=== PATIENT | female | born 1950 | race Caucasian/White ===

== ENCOUNTER → 2018-01-28 10:04 | Outpatient (CLI) | payer MEDICARE, OTHER, SELFPAY ==
[2018-01-28 12:24] LABS: AST(SGOT) 31 U/L (15-37); Alanine Aminotransfer ALT/SGPT 37 U/L (13-56); Albumin, Serum 3.6 g/dL (3.2-5.0); Alkaline Phosphatase 100 U/L (45-117); Globulin 2.9 g/dL (2.2-4.2); Protein, Total 6.5 g/dL (6.4-8.2)
== END ==
PROVIDERS: Family Provider Internal Medicine; PCP Internal Medicine; Visit Provider Internal Medicine
DX: R94.5 Abnormal results of liver function studies (principal)
CPT/HCPCS: 36415; 80076

== ENCOUNTER → 2018-09-11 15:20 | Outpatient (CLI) | payer MEDICARE, OTHER, SELFPAY ==
--- NOTE | 2018-09-11 15:25 | BI_ITS ---
MAMMOGRAPHY - BILATERAL SCREENING 3-D TOMOSYNTHESIS REASON FOR EXAM: Female, 68 years old. Bilateral Screening 3-D tomosynthesis PERTINENT HISTORY: Family history maternal aunts x2 ages 50 and 60 with breast cancer. Status post left stereotactic biopsy in 2008.. TECHNIQUE: 2-D mammograms and 3-D Tomosynthesis of the breast (s) were performed. CAD was performed. COMPARISON: April 19, 2017. FINDINGS: The breast composition is composed of scattered fibroglandular density. Scattered benign calcifications are seen. No dense spiculated masses or suspicious microcalcifications are identified. No architectural distortion is identified. There is no skin thickening or retraction. There is stable appearance and positioning of biopsy clip marker in the approximate 12:00 position of the left breast. There are typically benign-appearing calcifications bilaterally. There has been no significant change since the prior study. BI/SCREENING MAMM (CAD), BILAT IMPRESSION: No mammographic signs of malignancy. Routine yearly mammograms recommended. ASSESSMENT CATEGORY: BIRADS Category 2: Benign. A letter regarding these results will be sent to the patient by the facility within 30 days. FOLLOW UP RECOMMENDATION: Yearly follow up mammogram recommended. (A) Approximately 10% of breast cancers are not detected by mammography. A normal mammogram should not delay biopsy of a clinically suspicious abnormality. Electronically Signed: Saad Abdi MD at 15:05 EDT , Service support ,
--- NOTE | 2018-09-11 15:25 | BD_ITS ---
STUDY: DUAL ENERGY X-RAY ABSORPTIOMETRY / DXA REASON FOR EXAM: Female, 68 years old. Osteoporosis screening. TECHNIQUE: Bone Mineral Density (BMD) measurements of lumbar spine and bilateral hips were obtained. COMPARISON: April 17, 2016. FINDINGS: Lumbar Spine (L1-L4): g/cm2 (1.185) / T-score (0.0) / Z-score (1.7) Left Femur Total: g/cm2 (0.977) / T-score (-0.2) / Z-score (1.2) Left Femoral Neck: g/cm2 (0.909) / T-score (-0.9) / Z-score (0.8) Right Femur Total: g/cm2 (0.953) / T-score (-0.4) / Z-score (1.0) Right Femoral Neck: g/cm2 (0.931) / T-score (-0.8) / Z-score (0.9) BD/Dexa Bone Density Study IMPRESSION: The patient is considered normal as outlined below according to World [place] Organization (WHO) criteria with a low fracture risk. Reference Information: The T-score is the number of standard deviations above or below the standard which is normal for young adults at their peak bone mineral density. The World Health Organization (WHO) interprets the T-scores as follows: Above -1 Normal bone density Between -1 and -2.5 Osteopenia Equal to / or below -2.5 Osteoporosis As a practical clinical guideline, osteopenia may be graded as follows: Mild -1 through -1.5 Moderate -1.6 through -2.0 Severe -2.1 through -2.4 The Z-score is the number of standard deviations above or below age-matched controls. A Z-score of less than -1.5 would be considered abnormal. References: 1. NIH Osteoporosis and Related Bone Diseases http://www.osteo.org 2. International Society for Clinical Densitometry http://www.iscd.org 3. National Osteoporosis Foundation http://www.nof.org Electronically Signed: Saad Abdi MD at 11:24 EDT , Service support ,
== END ==
PROVIDERS: Family Provider Internal Medicine; PCP Internal Medicine; Referring Provider Internal Medicine; Visit Provider Internal Medicine
DX: Z12.31 Encounter for screening mammogram for malignant neoplasm of breast (principal); Z78.0 Asymptomatic menopausal state
CPT/HCPCS: 77063; 77067; 77080

== ENCOUNTER 2018-11-02 10:54 | Observation (INO) | payer MEDICARE, OTHER, SELFPAY ==
[2018-11-02] VITALS (11 sets, daily range): BP systolic 82–152; BP diastolic 49–78; PULSE 48–75; RESP 10–18; TEMP 36.6–37.2; O2SAT 93–100; BMI 35.7; BMI 34.7
--- NOTE | 2018-11-02 10:55 | RAD_ITS ---
STUDY: X-RAY CHEST REASON FOR EXAM: Female, 68 years old. TECHNIQUE: 1 view COMPARISON: None. FINDINGS: There is poor inspiratory informed. The heart is at the upper limits of normal. The lung hansen are clear except for heavy markings in the medial aspect of the bases. No obvious pleural effusion or pneumothorax. Minimal calcification noted in the aortic knob. The trachea is in the midline. The visualized bones are intact. RAD/Chest 1 View (Portable) IMPRESSION: Heavy markings medial aspect of the bases the rest of the study is negative Electronically Signed: Vince Smith, at 11:23 EDT Tel , Service support ,
--- NOTE | 2018-11-02 11:00 | NURSING ---
NO OLD EKGS
[2018-11-02 11:11] LABS: Absolute Lymphocyte Count 3.47 X10^3/ul (0.83-4.51); Absolute Neutrophil Count 3.1 X10^3/uL (2.0-7.7); Basophil# 0.03 X10^3/uL; Basophil% 0.4 % (0-1); Eosinophil# 0.19 X10^3/uL; Eosinophils% 2.6 % (0-5); Hematocrit 37.2 % (37-47); Hemoglobin 12.1 g/dl (12.0-15.0); Lymphocyte # 3.47 X10^3/ul (4.0); Lymphocyte % 47.2 % (19-41); Mean Corp Hgb Conc 32.5 g/gl (32-36); Mean Corpuscular Hgb 31.6 pg (27.0-32.0); Mean Corpuscular Volume 97.1 fL (81-99); Mean Platelet Vol. 12.2 fl (6.2-12.0); Monocyte# 0.55 X10^3/uL; Monocyte% 7.5 % (0-10); Neutrophil # 3.11 X10^3/uL (2.7-7.7); Neutrophil % 42.3 % (47-70); Platelet Count 184 K/mm3 (150-450); RBC Distribution Width SD 45.7 fl (35.1-43.9); Red Blood Count 3.83 M/mm3 (4.2-5.4); White Blood Count 7.4 K/mm3 (4.4-11.0)
[2018-11-02 11:12] LABS: POSITIVE COUNT NO; POSITIVE DIFFERENTIAL NO; POSITIVE MORPHOLOGY NO
[2018-11-02] MEDS: Ondansetron 4 MG/2 ML Vial IV (11:19)
[2018-11-02 11:27] LABS: Anion Gap 8 (5-15); BUN 19 mg/dL (7-18); Calcium,Total 8.1 mg/dL (8.5-10.1); Chloride 109 mmol/L (98-107); Creatinine, Serum 1.19 mg/dL (0.55-1.02); EST Glomerular Filtration Rate 48 mL/min (>60); Est Glom Filt Rate - Afr Amer 58 mL/min (>60); Estimated Creatinine Clearance 37.99 ml/min; Glucose 139 mg/dL (74-106); Potassium 3.7 mmol/L (3.5-5.1); Sodium Level 140 mmol/L (136-145)
--- NOTE | 2018-11-02 11:53 | NURSING ---
DR HATCH FOR DR LAWSON
--- NOTE | 2018-11-02 11:59 | NURSING ---
PCU OBS BRADYCARDIA SYNCOPE
--- NOTE | 2018-11-02 12:00 | ED.VIS.GEN ---
History of Present Illness Chief Complaint: Hypotension Informant: Patient, Family Onset: Today Current Severity: Moderate Narrative: The patient presents from [facility] where she went feeling perfectly healthy, then during the service she suddenly felt very weak tired had what sounds like either syncope or near syncope a nurse went to her aid her heart rate was 30 paramedics were called they found a heart rate of 30 sinus apparently, they began pacing her and she was brought to the emergency department. On arrival she is in a sinus bradycardia 50 her blood pressure is 105 she is awake and alert complaining of fatigue. Per the patient and her she has not been ill in any way she has had no fever cough chest pain abdominal pain, she has hypertension is well controlled she is never had anything like this before she is neurologically at her baseline Past Medical History - Allergies and Home Meds Allergies/Adverse Reactions: Allergies No Known Allergies Allergy (Verified 11/02/18 11:12) Primary Care Physician: Jacquelyn Giron MD [Primary Care Provider] - Past Medical History: - Smoking Status: Never smoker Review of Systems ROS: - See above General: Denies: Chills, Fever, Sweats Eyes: Denies: Visual changes - bilaterally, Diplopia ENT: Denies: Rhinorrhea, Sore throat Cardiovascular: Denies: Chest pain, Palpitations Respiratory: Denies: Dyspnea, Cough, Dyspnea on exertion Gastrointestinal: Denies: Abdominal pain, Nausea, Vomiting, Diarrhea, Melena, Hematochezia Genitourinary: Denies: Dysuria, Hematuria, Frequency Musculoskeletal: Denies: Back pain, Extremity Pain Skin: Denies: Rash, Wounds Neurological: Denies: Headache, Weakness, Numbness Physical Exam Vital Signs/Narrative: Vital Signs Temp Pulse Resp BP Pulse Ox 11/02/18 11:20 93 11/02/18 11:08 53 L 17 101/49 L 97 11/02/18 10:56 97.8 F 48 L 14 82/65 L 97 Diagnostic/Tx/Re-eval - Medical Decision Making The patient's EKG shows sinus bradycardia chest x-ray labs are generally unremarkable she is remained stable in the department hemodynamically, given all the above I have called the hospital see her for the management admission and treatment of the unexpected bradycardia hypotension and syncope Admit stable Final impression Bradycardia, hypotension syncope etiology unclear ED Disposition - Plan for ED Patient: Referrals: Jacquelyn Giron MD [Primary Care Provider] -
--- NOTE | 2018-11-02 12:28 | PCM.HP.STD ---
Problem List (1) Hypotension Status: Acute (2) Symptomatic bradycardia Status: Acute (3) Near syncope Status: Acute (4) Hyperlipidemia Status: Chronic (5) Hypertension Status: Chronic History of Present Illness Date of Admission: 11/02/18 Chief Complaint: Near syncope, dizziness. The patient is a 68 year old F with past medical history as mentioned above presented to the emergency room because of near syncope. The patient was at the [employer] this morning, was sitting on a chair, felt dizzy, lightheaded, pale and clammy, started to throw up and she was about to pass out. A nurse who works at the hospital was at the scene and she stated that the patient was pale, clammy, sweaty and was about to pass out but she did not lose her consciousness completely. The nurse stated that her blood pressure was 70/49, heart rate was in the 50s and it came down to 30s. Patient denied any chest pain or shortness of breath. She denied palpitation. She denied abdominal pain, nausea or vomiting. She has history of hypertension and she has been on lisinopril and her blood pressure under good control. She had a history of significant hot flashes and she has been on clonidine and she took 2 tablets of 0.1 mg clonidine This morning. she had a history of hyperlipidemia and she has been on statins. In the emergency department, patient was bradycardic, heart it has been in the 50s, initial blood pressure was 82/65, improved later. She was afebrile, pulse ox 100% on 1 L of oxygen. Her routine blood work was unremarkable. EKG revealed sinus bradycardia, normal MT interval, normal QRS, normal QTC, no acute ischemic changes, cardiac arrhythmias or evidence of heart block. Chest x-ray showed mild cardiomegaly, prominent right pulmonary artery, no acute findings. She is being admitted for near syncopal episode due to bradycardia and hypotension which is probably secondary to clonidine. Past Medical History Past Medical History (Chronic Problems): Chronic Problems Hyperlipidemia (Chronic) Hypertension (Chronic) Allergies No Known Allergies Allergy (Verified 11/02/18 11:12) Home Medications: Ambulatory Orders Medication Instructions Recorded Aspirin [Aspir 81] 81 mg PO DAILY 11/02/18 Atorvastatin Calcium [Lipitor] 20 mg PO QHS 11/02/18 Cholecalciferol (VIT D3) [Vitamin 5,000 unit PO DAILY 11/02/18 D] Clonidine HCl [Catapres] 0.1 mg PO TID 11/02/18 Glucos Sul 2Kcl/MSM/Chond/C/Mn 1 ea PO DAILY 11/02/18 [Glucosamine Chondroitin Cap] Lisinopril [Zestril] 20 mg PO DAILY 11/02/18 Multivitamin [Daily Multiple 1 ea PO DAILY 11/02/18 Vitamin] [place]-3 Fatty Acids/Fish Oil 1 ea PO DAILY 11/02/18 [[place] 3 1,000 mg Softgel] Triamcinolone 0.5% Cream 1 applic TOPICAL BID 11/02/18 [Triamcinolone Acetonide] Ubidecarenone [Co Q-10] 200 mg PO DAILY 11/02/18 Surgical History: rotator cuff repair, - - Ankle surgery. 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 Denies: Anorexia, Chills, Fever Eyes: Denies: Blurred vision, Double vision, Drainage, Redness HEENT: Denies: Difficulty Hearing, Ear Pain, Eye Pain, Nasal Congestion, Sore Throat Cardiovascular: Reports: Light Headedness. Denies: Chest Pain, Chest Pressure, Chest Tightness, Heaviness, Palpitations, Paroxysmal Noc. Dyspnea Respiratory: Denies: Cough, Pleuritic Pain, Shortness of Breath, Sputum production, Wheezing Gastrointestinal: Reports: Nausea, Vomiting. Denies: Abdominal Pain, Constipation, Diarrhea Genitourinary: Denies: Dysuria, Frequency, Hematuria Musculoskeletal: Denies: Arm Pain, Back Pain, Foot Pain Skin: Denies: Dryness, Rash Neurological: Denies: Balance problems, Double vision, Change in Speech, Slurred speech, Confusion, Headaches, Incoordination, Numbness Psychiatric: Denies: Anxiety, Depression Endocrine: Denies: Change in Body Habitus, Polydipsia, Polyuria VTE Information - Inpt Only VTE Present on Admission: No VTE Mechan Device Prophylaxis: None VTE Pharm Prophylaxis ordered?: Yes Patient Problems: Active and Suspected Problems Hypotension (Acute) Symptomatic bradycardia (Acute) Near syncope (Acute) - Physical Exam General: Alert, Oriented x3, Cooperative, No apparent distress HEENT: Atraumatic, PERRLA, EOMI, Normocephalic Oral: Moist Mucosa, No Gingival or Mucosal Lesions/ Ulcerations Neck: Supple, No JVD, Negative Carotid Bruits, Trachea Midline, Thyroid Normal Size and Texture Lungs: Clear to auscultation, Normal air movement, No rhonchi, No wheeze, No rales, Diminished Cardiovascular: Regular rate, Regular Rhythm, Normal S1, Normal S2, No murmurs, Bradycardic Abdomen: Bowel Sounds Present, Soft, Non Tender, Non-Distended, No Hepato-splenomegaly Extremities: No clubbing, No cyanosis, No edema Skin: No rashes, No breakdown Lymphatic: No Cervical, Supraclavicular, or Inguinal Adenopathy Neurological: Cranial nerves II-XII grossly intact, Motor Exam 5/5 strength throughout Psych/Mental Status: Normal Affect, Appropriate, Alert and oriented to time, place, person, mood and affect Vital Signs Temp Pulse Resp BP Pulse Ox 97.8 F 57 L 10 L 119/61 99 11/02/18 10:56 11/02/18 12:19 11/02/18 12:19 11/02/18 12:19 11/02/18 12:19 Oxygen Flow Rate (L/min) 1 Oxygen Delivery Method Nasal Cannula Weight: 208 lb 1.862 oz Body Mass Index (BMI) 35.7 Laboratory Tests Past 24 Hrs 11/02/18 11/02/18 11:02 11:02 WBC 7.4 RBC 3.83 L Hgb 12.1 Hct 37.2 MCV 97.1 MCH 31.6 MCHC 32.5 RDW 13.0 RDW Differential 45.7 H Plt Count 184 MPV 12.2 H Immature Gran % (Auto) 0.000 Neut % (Auto) 42.3 L Lymph % (Auto) 47.2 H King % (Auto) 7.5 Eos % (Auto) 2.6 Baso % (Auto) 0.4 Absolute Neuts (auto) 3.1 Absolute Lymphs (auto) 3.47 Total Counted Not Reportable Sodium 140 Potassium 3.7 Chloride 109 H Carbon Dioxide 23.0 Anion Gap 8 BUN 19 H Creatinine 1.19 H Estim Creat Clear Calc 37.99 Est GFR (MDRD) Af Amer 58 L Est GFR (MDRD) Non-Af 48 L BUN/Creatinine Ratio 16.0 Glucose 139 H Calcium 8.1 L Troponin I < 0.015 Clinical Impression(s) from Imaging Studies Chest X-Ray 11/02/18 10:55 IMPRESSION: Heavy markings medial aspect of the bases the rest of the study is negative Electronically Signed: Vince Smith, at 11:23 EDT Tel , Service support , Assessment/Plan All Active Problems Hypotension (Acute) Symptomatic bradycardia (Acute) Near syncope (Acute) This is a 68 years old female patient presented to the medicine because of near syncopal episode, bradycardia and hypotension she is being admitted for evaluation. #1 near syncopal episode/symptomatic bradycardia/hypotension: According to the patient's history as well as report from the nurse who was at the [employer], her symptoms are likely due to vasovagal episode secondary to bradycardia and hypotension which caused by clonidine. EKG revealed sinus bradycardia, normal MT interval, normal QRS, normal QTC, no evidence of acute ischemic changes, cardiac arrhythmias or heart block. Patient took 2 tablets of clonidine 0.1 mg this morning. She takes clonidine for hot flashes. Her troponin is negative x1. Plan: Admit to PCU for observation, cardiac monitoring, serial cardiac enzymes, repeat EKG tomorrow morning, check serum magnesium and TSH, discontinue clonidine, IV fluids, Tylenol PRN, orthostatic vitals tomorrow morning, 2D echocardiogram, PT OT evaluation and treatment. If by tomorrow morning patient remained bradycardic, we may need to look for other etiology for bradycardia. #2 hypertension: Patient has been on lisinopril blood pressure well controlled. At this time, blood pressure is borderline but improved. Plan to hold lisinopril. Patient was actually on clonidine for hot flashes. #3 hyperlipidemia: Continue statins. #4 DVT prophylaxis: Subcu Lovenox. This note was generated with [employer] dictation software. It may contain incorrect words, spelling, and punctuation that were not noted in checking the note before signing. Code Visit OBSV E&M: 67174 Initial observation care L3
--- NOTE | 2018-11-02 12:57 | ECHOD_ITS ---
Reason For Study: Near syncope Procedure This was a 2D Doppler, Color Flow transthoracic echocardiogram. Exam performed portable in patient room. Left Ventricle Normal LV size. Left ventricular systolic function is normal. The estimated ejection fraction is 65 %. Stage 2 diastolic dysfunction. No regional wall motion abnormalities noted. Right Ventricle Normal RV size. Normal systolic function. Atria Normal left atrium. Normal right atrium. Mitral Valve Normal mitral valve. Mild (1+) eccentric mitral valve insufficiency. Tricuspid Valve Normal tricuspid valve. Aortic Valve Normal aortic valve. Trisinus/trileaflet aortic valve. Pulmonic Valve Normal pulmonic valve. Great Vessels Normal aortic root. The pulmonary artery is normal size. Normal inferior vena cava. Pericardium/Pleural No pericardial effusion. MMode/2D Measurements & Calculations LVIDd: 4.4 cm IVSd: 1.2 cm Ao root diam: 3.0 cm LVIDs: 2.7 cm LVPWd: 1.2 cm RVDd: 3.4 cm FS: 38.4 % LAV(MOD-bp): 59.6 ml EDV(MOD-sp4): 84.6 ml EDV(MOD-sp2): 50.8 ml LAV(MOD-bp) Indexed: 29.9 ml/m2 ESV(MOD-sp4): 31.1 ml EF(MOD-sp2): 60.1 % LAV(MOD-sp2): 52.7 ml EF(MOD-sp4): 63.2 % LAV(MOD-sp4): 66.0 ml SV(MOD-sp4): 53.4 ml SV(MOD-sp2): 30.5 ml LA A4 area: 21.1 cm2 LA dimension(2D): 4.0 cm RA A4 area: 20.6 cm2 Doppler Measurements & Calculations MV E max javon: 102.0 cm/sec Lat Peak E' Javon: 8.7 cm/sec Med Peak E' Javon: 7.8 cm/sec MV A max javon: 105.8 cm/sec E/E' lat: 11.7 E/E' med: 13.1 MV E/A: 0.96 Ao V2 max: 163.9 cm/sec LV V1 max: 126.8 cm/sec PA V2 max: 84.4 cm/sec Ao max P.7 mmHg LV V1 max P.4 mmHg Interpretation Summary Normal LV size. Left ventricular systolic function is normal. The estimated ejection fraction is 65 %. Stage 2 diastolic dysfunction. Mild (1+) eccentric mitral valve insufficiency. Ordering Physician: Elvira Rubalcava Referring Physician: Jacquelyn Giron M.D. Performed By: Brooklynn Torres RDCS
[2018-11-02 13:48] LABS: Magnesium 1.8 mg/dL (1.6-2.6); Thyroid Stim Hormone (TSH) 3.51 uIU/mL (0.358-3.74)
[2018-11-02] MEDS: Lactated Ringers 1,000 ML 100 ML IV ×2 (13:48→22:05)
[2018-11-02] MEDS: Atorvastatin Calcium 20 MG Tablet PO (22:05)
[2018-11-03 02:35] VITALS: BP 144/71; PULSE 64; RESP 18; TEMP 36.6; O2SAT 97
[2018-11-03 03:00] VITALS: BP 144/71; BP 169/95; BP 170/82; PULSE 64; PULSE 68; PULSE 74
[2018-11-03 03:01] VITALS: PULSE 82
--- NOTE | 2018-11-03 05:55 | EKG12_ITS ---
Test Reason : AM EKG Blood Pressure : / mmHG Vent. Rate : 067 BPM Atrial Rate : 067 BPM P-R Int : 168 ms QRS Dur : 094 ms QT Int : 406 ms P-R-T Axes : 056 030 032 degrees QTc Int : 429 ms Normal sinus rhythm Normal ECG When compared with ECG of 02-NOV-2018 10:56, MANUAL COMPARISON REQUIRED, DATA IS UNCONFIRMED Confirmed by MARY OLIVEROS, TAWNY ([id number]), newspaper or periodical editor WALESKA CLAIRE ([id number]) on 11/04/2018 7:55:14 AM Referred By: Elvira Rubalcava Confirmed By:TAWNY HERNANDEZ MD
[2018-11-03 05:58] LABS: Absolute Lymphocyte Count 1.92 X10^3/ul (0.83-4.51); Absolute Neutrophil Count 2.4 X10^3/uL (2.0-7.7); Basophil# 0.01 X10^3/uL; Basophil% 0.2 % (0-1); Eosinophil# 0.12 X10^3/uL; Eosinophils% 2.5 % (0-5); Hematocrit 37.6 % (37-47); Hemoglobin 12.4 g/dl (12.0-15.0); Lymphocyte # 1.92 X10^3/ul (4.0); Lymphocyte % 40.1 % (19-41); Mean Corpuscular Hgb 31.6 pg (27.0-32.0); Mean Corpuscular Volume 95.7 fL (81-99); Mean Platelet Vol. 12.7 fl (6.2-12.0); Monocyte# 0.38 X10^3/uL; Monocyte% 7.9 % (0-10); Neutrophil # 2.35 X10^3/uL (2.7-7.7); Neutrophil % 49.1 % (47-70); Platelet Count 174 K/mm3 (150-450); RBC Distribution Width CV 12.8 % (11.6-14.6); RBC Distribution Width SD 43.2 fl (35.1-43.9); Red Blood Count 3.93 M/mm3 (4.2-5.4); White Blood Count 4.8 K/mm3 (4.4-11.0)
[2018-11-03 06:03] LABS: Anion Gap 6 (5-15); BUN 15 mg/dL (7-18); BUN/Creat Ratio 19.8 RATIO (10-20); Calcium,Total 8.5 mg/dL (8.5-10.1); Chloride 111 mmol/L (98-107); Creatinine, Serum 0.76 mg/dL (0.55-1.02); EST Glomerular Filtration Rate 80 mL/min (>60); Est Glom Filt Rate - Afr Amer 97 mL/min (>60); Glucose 97 mg/dL (74-106); Potassium 3.8 mmol/L (3.5-5.1); Sodium Level 146 mmol/L (136-145)
[2018-11-03 06:16] LABS: POSITIVE COUNT NO; POSITIVE DIFFERENTIAL NO; POSITIVE MORPHOLOGY NO
[2018-11-03 07:00] VITALS: PULSE 65
[2018-11-03 07:42] VITALS: O2SAT 92
[2018-11-03 08:28] VITALS: BP 152/63; PULSE 61; RESP 16; TEMP 37.1; O2SAT 97
[2018-11-03] MEDS: Lactated Ringers 1,000 ML 100 ML IV (08:32)
[2018-11-03] MEDS: Aspirin E.C. 81 MG Tablet PO (08:33)
--- NOTE | 2018-11-03 12:54 | PCM.DC ---
- Discharge Diagnoses Current Active Problems: Current Active and Chronic Problems Hypotension (Acute) Symptomatic bradycardia (Acute) Near syncope (Acute) Hyperlipidemia (Chronic) Hypertension (Chronic) Reason(s) for Visit for Discharge Instructions: Near syncope, bradycardia You will use the following diet at home:: Cardiac Your food should be the consistency of: Regular Your liquids should be the consistency of: Regular/Thin Discharge Activity: Return to Normal Activity Additional Instructions: Take note of changes to yiur medications. You have been taken off Clonidine. As discussed, you should take your blood pressure every morning and keep a log of it. You should follow-up with DR. Giron as scheduled with the log of your blood pressures. If your blood pressure is persistently more than 170s, you have to see a provider as soon as possible. You will be discharged with an event monitor and follow-up with cardiology in 2-4 weeks. Allergies/Adverse Reactions: Allergies No Known Allergies Allergy (Verified 11/02/18 11:12) Medications to take at Discharge Aspirin [Aspir 81] 81 mg PO DAILY 11/02/18 Atorvastatin Calcium [Lipitor] 20 mg PO QHS 11/02/18 Cholecalciferol (VIT D3) [Vitamin D3] 5,000 unit PO DAILY 11/02/18 Glucos Sul 2Kcl/MSM/Chond/C/Mn [Glucosamine Chondroitin Cap] 1 ea PO DAILY 11/02/18 Lisinopril [Zestril] 20 mg PO DAILY 11/02/18 Multivitamin [Daily Multiple Vitamin] 1 ea PO DAILY 11/02/18 [place]-3 Fatty Acids/Fish Oil [[place] 3 1,000 mg Softgel] 1 ea PO DAILY 11/02/18 Ubidecarenone [Co Q-10] 200 mg PO DAILY 11/02/18 Orders to be completed after discharge: 30-Day Event Recorder [[facility]] Location: None Selected Primary Care Physician: Jacquelyn Giron MD [Primary Care Provider] - Please follow up with your Primary Care Physician in: as scheduled Test Results: Test results from this visit will be discussed in further detail at your follow-up appointment, if applicable. Please Follow Up With: Douglas Matamoros MD When: within 2-4 weeks Proposed Discharge Date: 11/03/18
--- NOTE | 2018-11-03 12:59 | DS.PCM_ITS ---
Discharge Date and Diagnosis Date of Admission: 11/02/18 Date of Discharge: 11/03/18 - Primary Discharge Diagnosis Active and Suspected Problems Hypotension (Acute) Symptomatic bradycardia (Acute) Near syncope (Acute) Medication side-effect - Secondary Discharge Diagnosis Chronic Problems Hyperlipidemia (Chronic) Hypertension (Chronic) Hospital Course and Treatment Imaging Results: Clinical Impression(s) from Imaging Studies Chest X-Ray 11/02/18 10:55 IMPRESSION: Heavy markings medial aspect of the bases the rest of the study is negative Electronically Signed: Vince Smith, at 11:23 EDT Tel , Service support , None Operations: None Procedures: None Summary of Care Provided: The patient is a 68 year old F with past medical history of hypertension, hyperlipidemia who was brought to the emergency room with near syncope. Patient is on clonidine for hot flashes which she takes 0.2 mg twice daily in the summer and 0.1 mg twice daily in the winter. She was in [place] when she felt dizzy, lightheaded, pale and clammy and started to throw up with a sensation of passing out. Patient was found to have a blood pressure of 70/49 and a heart rate in the 30s to 50s. The EMS was called. The cardio-paced the patient on route. In the ED, she was still bradycardic and slightly hypotensive. EKG shows sinus bradycardia. Her clonidine was held. Heart rate and blood pressure improved overnight. 2D echo shows no acute abnormality. Patient was discharged with an event monitor to follow-up with cardiology, in 2 to 4 weeks. Her primary care doctor was called and updated. She was asked to keep a log of her blood pressure letter to her primary care doctor knows if her blood pressure continues to be elevated. Subjective: On the day of discharge, patient coming. She feels improved. Denies any chest pain or dizziness or palpitation. - Physical Exam General: Alert, Oriented x3, Cooperative, No apparent distress HEENT: Atraumatic, PERRLA, EOMI, Normocephalic Oral: Moist Mucosa Neck: Supple Lungs: Clear to auscultation, Normal air movement Cardiovascular: Regular rate, Regular Rhythm, Normal S1, Normal S2, No murmurs Abdomen: Bowel Sounds Present, Soft, Non Tender, Non-Distended, No Hepato- splenomegaly Extremities: No edema Skin: No rashes, No breakdown Musculoskeletal: No Tenderness to Palpation of Joints or Extremities Lymphatic: No Cervical, Supraclavicular, or Inguinal Adenopathy Neurological: Cranial nerves II-XII grossly intact, Neuro grossly intact Psych/Mental Status: Normal Affect, Appropriate Vital Signs Temp Pulse Resp BP Pulse Ox 98.7 F 61 16 152/63 H 97 11/03/18 08:28 11/03/18 08:28 11/03/18 08:28 11/03/18 08:28 11/03/18 08:28 Oxygen Flow Rate (L/min) 1 Oxygen Delivery Method Room Air Weight: 91.7 kg Body Mass Index (BMI) 34.7 Orthostatic Vital Signs Start: 11/02/18 14:36 Freq: q24h Status: Active Protocol: Activity Type Activity Date Activity User E-Sign Co-Sign Detail Recorded Client Recorded Date Recorded By Document 11/03/18 03:00 [facility] [id number] 11/03/18 03:34 [facility] 11/03/18 03:00 Orthostatic Vitals Standing -Blood Pressure (90/60-120/80) 169/95 H -Extremity Use Right Arm -Pulse Rate (60-100) 74 Sitting -Blood Pressure (90/60-120/80) 170/82 H -Extremity Use Right Arm -Pulse Rate (60-100) 68 Lying -Blood Pressure (90/60-120/80) 144/71 H -Extremity Use Right Arm -Pulse Rate (60-100) 64 Intake and Output for Last 24 Hours 11/01/18 11/02/18 11/03/18 23:59 23:59 23:59 Intake Total 1833 / 1833 571 / 571 Balance 1833 / 1833 571 / 571 Laboratory Tests Past 24 Hrs 11/02/18 11/02/18 11/02/18 11:02 14:15 17:10 WBC RBC Hgb Hct MCV MCH MCHC RDW RDW Differential Plt Count MPV Immature Gran % (Auto) Neut % (Auto) Lymph % (Auto) [place] % (Auto) Eos % (Auto) Baso % (Auto) Absolute Neuts (auto) Absolute Lymphs (auto) Total Counted Sodium Potassium Chloride Carbon Dioxide Anion Gap BUN Creatinine Estim Creat Clear Calc Est GFR (MDRD) Af Amer Est GFR (MDRD) Non-Af BUN/Creatinine Ratio Glucose Calcium Magnesium 1.8 Troponin I < 0.015 < 0.015 TSH 3.51 11/03/18 11/03/18 05:25 05:25 WBC 4.8 RBC 3.93 L Hgb 12.4 Hct 37.6 MCV 95.7 MCH 31.6 MCHC 33.0 RDW 12.8 RDW Differential 43.2 Plt Count 174 MPV 12.7 H Immature Gran % (Auto) 0.200 Neut % (Auto) 49.1 Lymph % (Auto) 40.1 [place] % (Auto) 7.9 Eos % (Auto) 2.5 Baso % (Auto) 0.2 Absolute Neuts (auto) 2.4 Absolute Lymphs (auto) 1.92 Total Counted Not Reportable Sodium 146 H Potassium 3.8 Chloride 111 H Carbon Dioxide 29.0 Anion Gap 6 BUN 15 Creatinine 0.76 Estim Creat Clear Calc 45.20 Est GFR (MDRD) Af Amer 97 Est GFR (MDRD) Non-Af 80 BUN/Creatinine Ratio 19.8 Glucose 97 Calcium 8.5 Magnesium Troponin I TSH Discharge Diet: Low fat/ Low Cholesterol, 2000 mg Sodium Diet Discharge Activity: Return to Normal Activity Home Medications: Medications to take at Discharge Aspirin [Aspir 81] 81 mg PO DAILY 11/02/18 Atorvastatin Calcium [Lipitor] 20 mg PO QHS 11/02/18 Cholecalciferol (VIT D3) [Vitamin D3] 5,000 unit PO DAILY 11/02/18 Glucos Sul 2Kcl/MSM/Chond/C/Mn [Glucosamine Chondroitin Cap] 1 ea PO DAILY 11/02/18 Lisinopril [Zestril] 20 mg PO DAILY 11/02/18 Multivitamin [Daily Multiple Vitamin] 1 ea PO DAILY 11/02/18 Winside-3 Fatty Acids/Fish Oil [Winside 3 1,000 mg Softgel] 1 ea PO DAILY 11/02/18 Ubidecarenone [Co Q-10] 200 mg PO DAILY 11/02/18 Other Amb Orders: 30-Day Event Recorder [[facility]] Location: None Selected Primary Care Physician: Jacquelyn Giron MD [Primary Care Provider] - Please follow up with your Primary Care Physician in: as scheduled Please Follow Up With: Douglas Matamoros MD When: within 2-4 weeks Disposition: Home Minutes spent on discharge:: 45 Patient Condition:: Stable Medical Necessity - Tobacco Use Smoking Status: Never smoker Tobacco Use: Non-smoker Meaningful Use Info Meaningful Use Diagnoses (Choose all that apply): None applicable Code Visit Inpatient E&M: 02488 Subs Hosp L2
== END 2018-11-03 12:52 | disposition home or self-care (01) ==
LOC: ED 12:06 → PCU 12:40
PROVIDERS: Admitting Provider Hospitalist; Emergency Provider Emergency Medicine; Family Provider Internal Medicine; PCP Internal Medicine; Referring Provider Hospitalist; Visit Provider Internal Medicine
DX: I95.9 Hypotension, unspecified (principal); R00.1 Bradycardia, unspecified; R55 Syncope and collapse; I10 Essential (primary) hypertension; E78.5 Hyperlipidemia, unspecified; Z79.899 Other long term (current) drug therapy; Z79.82 Long term (current) use of aspirin; N95.1 Menopausal and female climacteric states
CPT/HCPCS: 36415; 71045; 80048; 83735; 84443; 84484; 85025; 93005; 93306; 96361; 96374; 99218; 99285; J7030; J7120; A4216; G0378; J2405

== ENCOUNTER → 2019-03-04 08:25 | Outpatient (CLI) | payer MEDICARE, OTHER, SELFPAY ==
[2018-11-14 13:36] VITALS: BMI 34.4
--- NOTE | 2019-03-04 08:28 | US_ITS ---
STUDY: ABDOMINAL ULTRASOUND - RIGHT UPPER QUADRANT REASON FOR VISIT: Female, 68 years old elevated liver function tests. TECHNIQUE: Ultrasound evaluation of the right upper quadrant was performed with real-time and static jamison-scale imaging. TECHNICAL QUALITY: Limited. Examination limited by bowel gas. COMPARISON: None. FINDINGS: Liver: The liver measures 15.6 cm. There is normal echogenicity of the liver. The bile ducts are within normal limits. There is hepatic color flow. The direction of portal flow is hepatopetal. There is no demonstrated mass lesion. Gallbladder: Normal distended gallbladder. The gallbladder wall measures 2.6 mm. There is a negative sonographic Rosario's sign. There is no pericholecystic fluid. There are no gallstones. Common Bile Duct (C.B.D.): The common bile duct measures 5.3 mm. Pancreas: Normal size of the head, body and tail of the pancreas. There is normal echogenicity of the pancreas. There is no demonstrated pancreatic mass or cyst. Right Kidney: Normal size of the right kidney. The right kidney measures 10.5 x 5.2 x 5 point cm. Normal renal cortex. The right cortex measures 1.7 cm. There is no demonstrated renal mass or cyst. There is no right hydronephrosis. US/Liver IMPRESSION: Normal right upper quadrant ultrasound examination. Electronically Signed: Silvana Torrez MD at 3:21 EDT , Service support ,
== END ==
PROVIDERS: Family Provider Internal Medicine; PCP Internal Medicine; Referring Provider Internal Medicine; Visit Provider Internal Medicine
DX: R94.5 Abnormal results of liver function studies (principal)
CPT/HCPCS: 76705

== ENCOUNTER → 2019-04-30 15:42 | Outpatient (CLI) | payer MEDICARE, OTHER, SELFPAY ==
[2018-11-14 13:36] VITALS: BMI 34.4
--- NOTE | 2019-04-30 15:44 | RAD_ITS ---
STUDY: X-RAY - LUMBAR SPINE REASON FOR EXAM: Female, 68 years old. Chronic back pain TECHNIQUE: 3 view(s) of the lumbar spine were obtained. COMPARISON: None FINDINGS: Normal lumbar lordosis. There is a minimal lumbar dextroscoliosis. There is a normal alignment of the vertebrae. There is diffuse demineralization with multi-level endplate spondylosis. There is severe narrowing of the L4-5 disc space. The soft tissue structures are unremarkable. RAD/Lumbar Spine 2 or 3 Views IMPRESSION: Mild mid lumbar dextroscoliosis. Severe narrowing of the L4-5 disc space. Generalized osteopenia. Mild diffuse endplate spondylosis. Electronically Signed: Matthew Armstrong MD at 21:43 EST , Service support ,
== END ==
PROVIDERS: Family Provider Internal Medicine; PCP Internal Medicine; Referring Provider Internal Medicine; Visit Provider Internal Medicine
DX: M54.5 Low back pain (principal)
CPT/HCPCS: 72100

== ENCOUNTER 2019-07-17 09:30 | Outpatient (RCR) | payer MEDICARE, OTHER, SELFPAY ==
[2018-11-14 13:36] VITALS: BMI 34.4
--- NOTE | 2019-06-24 12:40 | HP.PTEVAL ---
Patient's Visit Information MARINO WASHINGTON is a 69 year old F referred to Physical Therapy by Jacquelyn Giron MD with a diagnosis of LBP ,LEFT HIP PAIN. Date of Evaluation: 06/24/19 Physical Therapist: Marquis Hannah, PT, Cert MDT, OCS - Visit Plan Frequency: 5x /Week Duration: 4 Weeks Plan: PT INTERVETIONS US/ESTIM /CP BILTERAL HIP GREATER TROCHNATER,STICK/STM IT BAND,. STRENGTHENING AND CORE,FLEXABLITY HIP - Subjective Findings: This 69 y/o female presents to physical therapy with low back and left hip pain. Patient has low back pain years ,and hip pain left in lateral hip. Seen DR pricila medjoe and stretches. Patient pain affects worse elevation from chair ,walking ,night,bending and lifting. Allevating factors sitting/rest. Denies parathesia/tingling. Night is worse 8-01/20 . Symmtrical lumbar. Coughing /sneezing -. Bowel/bladder -. Pateint symptoms affects ability houseworks and function. Pateint symptoms affects QOL. VOCATION: retired. SOCAIL: - Pain Right Hip Pain Intensity (Out of 10): 1 Pain Intensity Range: 10 Right Back Pain Intensity (Out of 10): 1 Pain Intensity Range: 10 - Objective POSTURE: mild foward posture. NEURO: denies parathesia/tingling,reflexes L3-4,L4-5,L4-5 1/3. PALAPTION: bilateral tender I-T band -very tender ,greater tronhanter. GAIT: normal waldo. PROM: hip felxion 110 degrees,IR 50 degrees ,ER 65 degrees. LUMBAR ROM: flexion WFL,extension min loss,side glides min. MMT: quads/hams 4/5,hip flexion 4-/5,abd 4-/5,ankle 4/5. FLEXABLITY: hams min tight,piriformis mild tight - Special Tests L/S Slump test left side: Negative L/S Slump test right side: Negative L/S Left Straight Leg Raise: Negative L/S Right Straight Leg Raise: Negative Lumbar Standing: Flexion - Mechanical Response: No effect Lumbar Standing: Flexion - Symptoms During Testing: No effect Lumbar Standing: Flexion - Symptoms After Testing: No effect Lumbar Standing: Extension - Mechanical Response: No effect Lumbar Standing: Extension - Symptoms During Testing: No effect Lumbar Standing: Extension - Symptoms After Testing: No effect Lumbar Standing: Right Side Glides - Mechanical Response: No effect Lumbar Standing: Right Side Point Clear - Symptoms During Testing: No effect Lumbar Standing: Right Side Point Clear - Symptoms After Testing: No effect Lumbar Standing: Left Side Point Clear - Mechanical Response: No effect Lumbar Standing: Left Side Point Clear - Symptoms During Testing: No effect Lumbar Standing: Left Side Point Clear - Symptoms After Testing: Better R Hip Scour: Negative R Hip MEGAN - Intraarticular Pathology: Negative R Hip Enedelia - IT Band: Positive L Hip Scour: Negative L Hip MEGAN - Intraarticular Pathology: Negative L Hip Trendelenberg - Glut Medius: Negative L Hip Enedelia - IT Band: Positive - Goals Goal 1:: Independant with HEP Goal Time Frame: 4-6 Weeks Goal 2:: Decrease bilateral hip pain I- band by 50% or > to improve function and QOL. Goal Time Frame: 4-6 Weeks Goal 3:: Patient to decrease lateral greater tronchanter pain and I T band with less sympptoms duing palaption enbale patient to sleep on either side by 50% Goal Time Frame: 4-6 Weeks Goal 4:: Patient be able to perform bilateral hip pain with extended walking in community Goal Time Frame: 4-6 Weeks Goal 5:: Patient improve LFES score by 10 points to improve QOL. Goal Time Frame: 4-6 Weeks - Rehabilitation Potential Physical Therapy Diagnosis: Patient has right hip pain some worse than left with tender greater tronchanter,IT BAND with mild bcak pain,IT band affects sleeping at night on sides,getting up from chair ,extended walking,along with some weakness thus benifit from skilled PT . Rehabilitation Potential: Good - Anticipated Interventions Patient/Client Instruction: Educate patient on: Condition, Plan of Care For the Purpose of:: To decrease pain, To increase ROM, To improve muscle performance and motor function, To increase tolerance to activity/condition/position, To improve performance and independence with ADL's, To improve ability of physical actions for home/community/work/leisure, To improve health of tissue, To decrease soft tissue restriction, To increase flexibility/ROM, To improve ability to perform tasks related to life management Therapeutic Exercise to Include: Strength training, Postural training, Flexibilty training, Active ROM, Dynamic Lumbar Stabilization Comment: hips For the Purpose of:: To decrease pain, To increase ROM, To improve muscle performance and motor function, To improve ability to perform ADL's, To increase tolerance to activity/condition/position, To improve ability of physical actions for home/community/work/leisure, To improve health of tissue, To decrease soft tissue restriction, To increase flexibility/ROM, To improve ability to perform tasks related to life management Manual Therapy Techniques to Include: Soft tissue mobilization Comment: I-T BAND For the Purpose of:: To decrease pain, To increase ROM, To improve nutrient delivery to tissue, To increase oxygenation perfusion, To improve health of tissue, To decrease soft tissue restriction, To increase flexibility/ROM TENS: Yes IF ES: Yes Cryotherapy (ice pack, ice massage): Yes Ultrasound (thermal/non thermal): Yes For the Purpose of:: To decrease pain, To increase ROM, To improve nutrient delivery to tissue, To increase oxygenation perfusion, To improve health of tissue, To decrease soft tissue restriction Thank you for the opportunity to evaluate your patient. For Medicare and Medicare HMO plans, please review the plan of care and approve it. It will need to be FAXED BACK to us at [phone] for Medicare purposes. For Medicare only, by signing this I certify the plan of care. Please let me know if there are questions or concerns regarding this plan of care. Physician Signature: Date:
--- NOTE | 2019-06-25 10:09 | HP.PTEVAL_ITS ---
Patient's Visit Information MARINO WASHINGTON is a 69 year old F referred to Physical Therapy by Jacquelyn Giron MD with a diagnosis of LBP ,LEFT HIP PAIN. Date of Evaluation: 06/24/19 Physical Therapist: Marquis Hannah, PT, Cert MDT, OCS - Visit Plan Frequency: 5x /Week Duration: 4 Weeks Plan: PT INTERVETIONS US/ESTIM /CP BILTERAL HIP GREATER TROCHNATER,STICK/STM IT BAND,. STRENGTHENING AND CORE,FLEXABLITY HIP - Subjective Findings: This 69 y/o female presents to physical therapy with low back and left hip pain. Patient has low back pain years ,and hip pain left in lateral hip. Seen DR mcnulty medjoe and stretches. Patient pain affects worse elevation from chair ,walking ,night,bending and lifting. Allevating factors sitting/rest. Denies parathesia/tingling. Night is worse 8-10 . Symmtrical lumbar. Coughing / sneezing -. Bowel/bladder -. Pateint symptoms affects ability houseworks and function. Pateint symptoms affects QOL. VOCATION: retired. SOCAIL: - Pain Right Hip Pain Intensity (Out of 10): 1 Pain Intensity Range: 10 Right Back Pain Intensity (Out of 10): 1 Pain Intensity Range: 10 Left Hip Pain Intensity (Out of 10): 1 Pain Intensity Range: 10 - Objective POSTURE: mild foward posture. NEURO: denies parathesia/tingling,reflexes L3-4,L4-5,L4-5 1/3. PALAPTION: bilateral tender I-T band -very tender ,greater tronhanter. GAIT: normal waldo. PROM: hip felxion 110 degrees,IR 50 degrees ,ER 65 degrees. LUMBAR ROM: flexion WFL,extension min loss,side glides min. MMT: quads/hams 4/5,hip flexion 4-/5,abd 4-/5,ankle 4/5. FLEXABLITY: hams min tight,piriformis mild tight - Special Tests L/S Slump test left side: Negative L/S Slump test right side: Negative L/S Left Straight Leg Raise: Negative L/S Right Straight Leg Raise: Negative Lumbar Standing: Flexion - Mechanical Response: No effect Lumbar Standing: Flexion - Symptoms During Testing: No effect Lumbar Standing: Flexion - Symptoms After Testing: No effect Lumbar Standing: Extension - Mechanical Response: No effect Lumbar Standing: Extension - Symptoms During Testing: No effect Lumbar Standing: Extension - Symptoms After Testing: No effect Lumbar Standing: Right Side Glides - Mechanical Response: No effect Lumbar Standing: Right Side [place] - Symptoms During Testing: No effect Lumbar Standing: Right Side [place] - Symptoms After Testing: No effect Lumbar Standing: Left Side [place] - Mechanical Response: No effect Lumbar Standing: Left Side [place] - Symptoms During Testing: No effect Lumbar Standing: Left Side [place] - Symptoms After Testing: Better R Hip Scour: Negative R Hip MEGAN - Intraarticular Pathology: Negative R Hip Enedelia - IT Band: Positive L Hip Scour: Negative L Hip MEGAN - Intraarticular Pathology: Negative L Hip Trendelenberg - Glut Medius: Negative L Hip Enedelia - IT Band: Positive - Goals Goal 1:: Independant with HEP Goal Time Frame: 4-6 Weeks Goal 2:: Decrease bilateral hip pain I- band by 50% or > to improve function and QOL. Goal Time Frame: 4-6 Weeks Goal 3:: Patient to decrease lateral greater tronchanter pain and I T band with less sympptoms duing palaption enbale patient to sleep on either side by 50% Goal Time Frame: 4-6 Weeks Goal 4:: Patient be able to perform bilateral hip pain with extended walking in community Goal Time Frame: 4-6 Weeks Goal 5:: Patient improve LFES score by 10 points to improve QOL. Goal Time Frame: 4-6 Weeks - Rehabilitation Potential Physical Therapy Diagnosis: Patient has right hip pain some worse than left with tender greater tronchanter,IT BAND with mild bcak pain,IT band affects sleeping at night on sides,getting up from chair ,extended walking,along with some weakness thus benifit from skilled PT . Rehabilitation Potential: Good - Anticipated Interventions Patient/Client Instruction: Educate patient on: Condition, Plan of Care For the Purpose of:: To decrease pain, To increase ROM, To improve muscle performance and motor function, To increase tolerance to activity/condition/position, To improve performance and independence with ADL's, To improve ability of physical actions for home/community/work/leisure, To improve health of tissue, To decrease soft tissue restriction, To increase flexibility/ROM, To improve ability to perform tasks related to life management Therapeutic Exercise to Include: Strength training, Postural training, Flexibilty training, Active ROM, Dynamic Lumbar Stabilization Comment: hips For the Purpose of:: To decrease pain, To increase ROM, To improve muscle performance and motor function, To improve ability to perform ADL's, To increase tolerance to activity/condition/position, To improve ability of physical actions for home/community/work/leisure, To improve health of tissue, To decrease soft tissue restriction, To increase flexibility/ROM, To improve ability to perform tasks related to life management Manual Therapy Techniques to Include: Soft tissue mobilization Comment: I-T BAND For the Purpose of:: To decrease pain, To increase ROM, To improve nutrient delivery to tissue, To increase oxygenation perfusion, To improve health of tissue, To decrease soft tissue restriction, To increase flexibility/ROM TENS: Yes IF ES: Yes Cryotherapy (ice pack, ice massage): Yes Ultrasound (thermal/non thermal): Yes For the Purpose of:: To decrease pain, To increase ROM, To improve nutrient delivery to tissue, To increase oxygenation perfusion, To improve health of tissue, To decrease soft tissue restriction Thank you for the opportunity to evaluate your patient. For Medicare and Medicare HMO plans, please review the plan of care and approve it. It will need to be FAXED BACK to us at [phone] for Medicare purposes. For Medicare only, by signing this I certify the plan of care. Please let me know if there are questions or concerns regarding this plan of care. Physician Signature: Date:
--- NOTE | 2019-08-17 13:24 | HP.PT.NRP ---
MARINO WASHINGTON was seen in my office for initial evaluation on 06/24/19. The following Plan of Care was established for this patient: Initial Frequency: 5x /Week Initial Duration: 4 Weeks Patient/Client Instruction: Educate patient on: Condition, Plan of Care For the Purpose of:: To decrease pain, To increase ROM, To improve muscle performance and motor function, To increase tolerance to activity/condition/position, To improve performance and independence with ADL's, To improve ability of physical actions for home/community/work/leisure, To improve health of tissue, To decrease soft tissue restriction, To increase flexibility/ROM, To improve ability to perform tasks related to life management Therapeutic Exercise to Include: Strength training, Postural training, Flexibilty training, Active ROM, Dynamic Lumbar Stabilization For the Purpose of:: To decrease pain, To increase ROM, To improve muscle performance and motor function, To improve ability to perform ADL's, To increase tolerance to activity/condition/position, To improve ability of physical actions for home/community/work/leisure, To improve health of tissue, To decrease soft tissue restriction, To increase flexibility/ROM, To improve ability to perform tasks related to life management Manual Therapy Techniques to Include: Soft tissue mobilization Comment: I-T BAND For the Purpose of:: To decrease pain, To increase ROM, To improve nutrient delivery to tissue, To increase oxygenation perfusion, To improve health of tissue, To decrease soft tissue restriction, To increase flexibility/ROM TENS: Yes IF ES: Yes Cryotherapy (ice pack, ice massage): Yes Ultrasound (thermal/non thermal): Yes For the Purpose of:: To decrease pain, To increase ROM, To improve nutrient delivery to tissue, To increase oxygenation perfusion, To improve health of tissue, To decrease soft tissue restriction This patient was last seen in our office 07/17/19. Pertinent comments regarding their Physical therapy will appear below: This patient seen gor hip pain and back pain. Patient progressed well with manual tech ,flexablity,strengthening ,modalties intially thus is d/c. At this point I will be discontinuing this patient from physical therapy. I would be happy to see this patient again in the future if found appropriate by the physician. Thank you! Marquis Hannah, PT, Cert MDT, OCS
== END 2019-07-17 17:00 | disposition home or self-care (01) ==
LOC: PT 09:30
PROVIDERS: PCP Internal Medicine; Referring Provider Internal Medicine; Visit Provider Internal Medicine
DX: M54.5 Low back pain (principal); M25.552 Pain in left hip
CPT/HCPCS: 97035; 97110; 97140; 97162

== ENCOUNTER → 2020-02-05 12:30 | Outpatient (CLI) | payer MEDICARE, OTHER, SELFPAY ==
[2018-11-14 13:36] VITALS: BMI 34.4
--- NOTE | 2020-02-05 12:32 | BI_ITS ---
MAMMOGRAPHY - BILATERAL SCREENING REASON FOR EXAM: Female, 69 years old. Routine annual screening examination. PERTINENT HISTORY: Aunt with breast cancer. Remote left stereotactic breast biopsy. TECHNIQUE: Digital bilateral breast tristan (3D mammographic acquisition) in the CC and MLO projections. 2-D mediolateral oblique (MLO) and craniocaudad (CC) views of both breasts were obtained. CAD: Full Field Digital Mammography with Computer Added Detection was performed. COMPARISON: Comparison is made with prior examination dated 09/11/2018 and 04/19/2017. FINDINGS: Breast Composition: There are scattered areas of fibroglandular density. There are no dominant masses or suspicious calcifications. A tissue clip marker is seen in the slightly upper central portion of the left breast. Stable small benign appearing bilateral axillary lymph nodes. No other significant abnormalities are identified. There has been no significant change since the prior study. BI/SCREEN MAMM (CAD) W/TRISTAN BILAT IMPRESSION: Stable bilateral screening mammogram. Yearly follow-up mammogram recommended. (A) ASSESSMENT CATEGORY: BIRADS Category 2: Benign. A letter regarding these results will be sent to the patient by the facility within 30 days. Approximately 10% of breast cancers are not detected by mammography. A normal mammogram should not delay biopsy of a clinically suspicious abnormality. [id number] Electronically Signed: Nghia Bergman, at 14:22 EDT , Service support ,
== END ==
PROVIDERS: PCP Internal Medicine; Referring Provider Internal Medicine; Visit Provider Internal Medicine
DX: Z12.31 Encounter for screening mammogram for malignant neoplasm of breast (principal); Z80.3 Family history of malignant neoplasm of breast
CPT/HCPCS: 77063; 77067

== ENCOUNTER 2020-07-06 12:09 | Outpatient (RCR) | payer MEDICARE, OTHER, SELFPAY ==
[2018-11-14 13:36] VITALS: BMI 34.4
== END 2020-07-06 23:59 ==
LOC: IMMUN 12:09
PROVIDERS: PCP Internal Medicine; Referring Provider Family Medicine; Visit Provider Family Medicine
DX: Z23 Encounter for immunization (principal)
CPT/HCPCS: 0011A; 0012A; 91301

== ENCOUNTER 2020-09-23 15:30 | Outpatient (RCR) | payer OTHER, MEDICARE, SELFPAY ==
[2018-11-14 13:36] VITALS: BMI 34.4
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
== END 2020-09-23 19:00 | disposition home or self-care (01) ==
LOC: PT 15:30
PROVIDERS: PCP Internal Medicine; Referring Provider Internal Medicine; Visit Provider Internal Medicine
DX: M54.9 Dorsalgia, unspecified (principal)
CPT/HCPCS: 97035; 97110; 97112; 97162; 97164; 97530

== ENCOUNTER → 2021-02-06 07:40 | Outpatient (CLI) | payer MEDICARE, OTHER, SELFPAY ==
--- NOTE | 2021-02-06 07:45 | BI_ITS ---
MAMMOGRAPHY - BILATERAL SCREENING REASON FOR EXAM: Female, 70 years old. Routine annual screening examination. PERTINENT HISTORY: Aunts with breast cancer. Remote left stereotactic breast biopsy. TECHNIQUE: Digital bilateral breast tristan (3D mammographic acquisition) in the CC and MLO projections. 2-D mediolateral oblique (MLO) and craniocaudad (CC) views of both breasts were obtained. CAD: Full Field Digital Mammography with Computer Added Detection was performed. COMPARISON: Comparison is made with prior study near 02/05/2020 and 09/11/2018. FINDINGS: Breast Composition: There are scattered areas of fibroglandular density. There are no dominant masses or suspicious calcifications. Stable benign-appearing bilateral axillary lymph nodes. A tissue clip marker is once again seen in the slightly upper central portion of the left breast. No other significant abnormalities are identified. There has been no significant change since the prior study. BI/SCRN MAMM (CAD)W/TRISTAN BILAT IMPRESSION: Stable bilateral screening mammogram. Yearly follow-up mammogram recommended. (A) ASSESSMENT CATEGORY: BIRADS Category 2: Benign. A letter regarding these results will be sent to the patient by the facility within 30 days. Approximately 10% of breast cancers are not detected by mammography. A normal mammogram should not delay biopsy of a clinically suspicious abnormality. [id number] Electronically Signed: Nghia Bergman MD at 8:40 EDT , Service support ,
== END ==
PROVIDERS: PCP Internal Medicine; Referring Provider Internal Medicine; Visit Provider Internal Medicine
DX: Z12.31 Encounter for screening mammogram for malignant neoplasm of breast (principal)
CPT/HCPCS: 77063; 77067

== ENCOUNTER 2021-05-22 10:25 | Outpatient (CLI) | payer MEDICARE, OTHER, SELFPAY ==
--- NOTE | 2021-05-22 10:35 | US_ITS ---
STUDY: ABDOMINAL ULTRASOUND - RIGHT UPPER QUADRANT REASON FOR VISIT: Female, 70 years old ELEVATED LFT''S TECHNIQUE: Ultrasound evaluation of the right upper quadrant was performed with real-time and static jamison-scale imaging. TECHNICAL QUALITY: Adequate. COMPARISON: Comparison is made with prior study dated 03/04/2019. FINDINGS: Liver: The liver measures 15.2 cm. There is normal echogenicity of the liver. The bile ducts are within normal limits. There is hepatic color flow. The direction of portal flow is hepatopetal. There is no demonstrated mass lesion. Gallbladder: Normal distended gallbladder. The gallbladder wall measures 2.7 mm. There is a negative sonographic Rosario''s sign. There is no pericholecystic fluid. There are no gallstones. Common Bile Duct (C.B.D.): The common bile duct measures 2.9 mm. Pancreas: Normal size of the head, body and tail of the pancreas. There is increased echogenicity of the pancreas. There is no demonstrated pancreatic mass or cyst. Right Kidney: Normal size of the right kidney. The right kidney measures 9.9 cm x 6.1 cm x 5.5 cm. Normal renal cortex. The right cortex measures 2.0 cm. There is no demonstrated renal mass or cyst. There is no right hydronephrosis. US/Liver IMPRESSION: Normal right upper quadrant ultrasound examination. Electronically Signed: Nghia Bergman MD at 14:12 EST , Service support ,
== END 2021-05-22 23:59 | disposition short-term general hospital (02) ==
LOC: US 10:32
PROVIDERS: PCP Internal Medicine; Referring Provider Internal Medicine; Visit Provider Internal Medicine
DX: R94.5 Abnormal results of liver function studies (principal)
CPT/HCPCS: 76705

== ENCOUNTER 2021-07-05 08:33 | Outpatient (CLI) | payer MEDICARE, OTHER, SELFPAY ==
--- NOTE | 2021-07-05 08:37 | BD_ITS ---
STUDY: DUAL ENERGY X-RAY ABSORPTIOMETRY / DXA REASON FOR EXAM: Female, 71 years old. [id number]. The patient is postmenopausal. TECHNIQUE: Bone Mineral Density (BMD) measurements of lumbar spine and bilateral hips were obtained. COMPARISON: Comparison is made with prior study dated 09/11/2018. FINDINGS: Lumbar Spine (L1-L4): g/cm2 (1.045) / T-score (0.0) / Z-score (2.3) Findings are suggestive of normal bone density with a low fracture risk. Left Femur Total: g/cm2 (0.937) / T-score (0.0) / Z-score (1.6) Left Femoral Neck: g/cm2 (0.743) / T-score (-1.0) / Z-score (1.0) Right Femur Total: g/cm2 (0.926) / T-score (-0.1) / Z-score (1.5) Right Femoral Neck: g/cm2 (0.731) / T-score (-1.1) / Z-score (0.9) The T-Scores on the most recent prior examination were: Lumbar Spine (L1-L4): There has been worsening of bone density since the previous examination. Left Femur Total: which represents an improvement of 2.7%. Right Femur Total: which represents an improvement of 4.3%. BD/Dexa Bone Density Study IMPRESSION: The patient is considered osteopenic as outlined below according to World [place] Organization (WHO) criteria with a low fracture risk. There has been worsening of bone density since the previous examination. Reference Information: The T-score is the number of standard deviations above or below the standard which is normal for young adults at their peak bone mineral density. The World Health Organization (WHO) interprets the T-scores as follows: Above -1 Normal bone density Between -1 and -2.5 Osteopenia Equal to / or below -2.5 Osteoporosis As a practical clinical guideline, osteopenia may be graded as follows: Mild -1 through -1.5 Moderate -1.6 through -2.0 Severe -2.1 through -2.4 The Z-score is the number of standard deviations above or below age-matched controls. A Z-score of less than -1.5 would be considered abnormal. References: 1. NIH Osteoporosis and Related Bone Diseases www osteo.org 2. International Society for Clinical Densitometry www iscd.org 3. National Osteoporosis Foundation www nof.org Electronically Signed: Nghia Bergman MD at 14:58 EST ,
== END 2021-07-05 23:59 | disposition home or self-care (01) ==
LOC: OPBD 08:34
PROVIDERS: PCP Internal Medicine; Referring Provider Internal Medicine; Visit Provider Internal Medicine
DX: N95.1 Menopausal and female climacteric states (principal); Z78.0 Asymptomatic menopausal state
CPT/HCPCS: 77080

== ENCOUNTER 2021-09-22 05:23 | Day surgery (SDC) | payer MEDICARE, OTHER, SELFPAY ==
[2021-09-22] VITALS (18 sets, daily range): BP systolic 105–178; BP diastolic 59–102; PULSE 60–81; RESP 16–20; TEMP 36.1–36.8; O2SAT 92–100; BMI 34.5
[2021-09-22] MEDS: Lactated Ringers 1,000 ML 15 ML IV (06:01)
--- NOTE | 2021-09-22 06:12 | PCM.HP.STD ---
HPI - General General Date of Admission: 01/26/20 HPI Narrative MARINO WASHINGTON, is a 71 F who presents for colonoscopy. I have records of October 04, [address] Demario Quintero performed a colonoscopy on her. 310 mm polyps at the hepatic flexure identified. Cecal polyp was fragment of tubular adenoma and hepatic flexure polyps fragments of sessile serrated polyp She denies any current symptoms. No bright red blood per rectum or melena. No abdominal pain. No unexpected weight loss. No history of DVT. [facility] Medical History (Updated 09/21/21 @ 08:52 by María Young) Anxiety Arthritis Back pain Cardiology follow-up encounter CPAP (continuous positive airway pressure) dependence DDD (degenerative disc disease) Depression Essential (primary) hypertension High cholesterol History of pain when walking Hyperlipidemia Near syncope (11/03/18) Non-smoker Obesity Symptomatic bradycardia (11/03/18) Syncope Wears glasses Wears hearing aid Home Medications atorvastatin 20 mg PO QHS 11/02/18 [History Last Taken 11/01/18 22:00] cholecalciferol (vitamin D3) 5,000 unit PO DAILY 11/02/18 [History Last Taken 11/02/18 08:30] multivitamin 1 ea PO DAILY 11/02/18 [History Last Taken 11/02/18 08:00] lisinopril 10 mg tablet 10 mg PO DAILY #90 tab 11/14/18 [Rx Last Taken Unknown] bupropion HCl [Wellbutrin SR] 150 mg PO DAILY 09/21/21 [History Last Taken Unknown] clonidine HCl 0.1 mg PO BID 09/21/21 [History Last Taken Unknown] Allergy/AdvReac Type Severity Reaction Status Date / Time No Known Allergies Allergy Verified 09/22/21 05:46 Surgical History (Updated 09/21/21 @ 08:52 by María Young) History of ankle surgery History of repair of rotator cuff Hx of colonoscopy Social History (System 11/21/18 @ 09:37 by Eve Porras) Smoking Status: Never smoker ROS Constitutional Constitutional: Reports systems reviewed and no addt'l complaints, except as documented Cardiovascular Cardiovascular: Denies chest pain Respiratory/Chest Respiratory/Chest: Denies shortness of breath at rest Gastrointestinal Gastrointestinal: Denies abdominal pain, change in bowel habits, hematochezia or melena Vital Signs Vital Signs Vital Signs: 09/22/21 05:48 09/22/21 05:49 Temperature 98.2 F Temperature Source Temporal Pulse Rate 81 Respiratory Rate 18 Respiratory Pattern Normal Blood Pressure 156/84 H Blood Pressure Mean 108 Blood Pressure Source Monitor Blood Pressure Position Semi-Fowlers Blood Pressure Location Left Arm Pulse Ox 97 Oxygen Delivery Method Room Air Weight Weight: 204 lb 6.4 oz Body Mass Index (BMI) 34.5 Physical Exam Const alert, oriented x3 and no apparent distress General Appearance: cooperative and comfortable Eyes General Eye: normal appearance of both eyes Neck General: normal visual inspection Chest inspection of chest normal Resp Effort and Inspection: able to speak in complete sentences and symmetric chest movement Auscultation: clear to auscultation bilaterally Cardio regular rate and regular rhythm GI soft to palpation, non-tender and non-distended Extremity no calf tenderness Neuro oriented x3 Psych thought process normal Assessment & Plan Assessment/Plan (1) Encounter for screening for malignant neoplasm of colon: PLAN: Encounter via open access for screening colonoscopy. Previous examination September 2013 notable for cecum and hepatic flexure polyps benign. I discussed with her technique, benefit, risk, alternatives. Plan to proceed with colonoscopy. She has had an opportunity to ask and have questions answered. We will we will proceed as noted. Jared Mayer M.D., F.A.C.S.
[2021-09-22] MEDS: Midazolam 5 MG/ML Syringe (06:35)
--- NOTE | 2021-09-22 06:57 | OP.COLON_ITS ---
Patient Name: Breanna Figueroa Procedure Date: 09/22/2021 6:17 AM Date of : 1950 Age: 71 Procedure: Colonoscopy Indications: High risk colon cancer surveillance: Personal history of colonic polyps Providers: Jared Mayer MD Referring MD: Jacquelyn Giron Medicines: Midazolam 2.5 mg IV, Meperidine 100 mg IV Patient Profile: Last Colonoscopy: September 2013. Complications: No immediate complications. Procedure: Pre-Anesthesia Assessment: - Prior to the procedure, a History and Physical was performed, and patient medications and allergies were reviewed. The patient's tolerance of previous anesthesia was also reviewed. The risks and benefits of the procedure and the sedation options and risks were discussed with the patient. All questions were answered, and informed consent was obtained. Prior Anticoagulants: The patient has taken no previous anticoagulant or antiplatelet agents. ASA Grade Assessment: II - A patient with mild systemic disease. After reviewing the risks and benefits, the patient was deemed in satisfactory condition to undergo the procedure. After I obtained informed consent, the scope was passed under direct vision. Throughout the procedure, the patient's blood pressure, pulse, and oxygen saturations were monitored continuously. The Colonoscope was introduced through the anus and advanced to the cecum, identified by appendiceal orifice and ileocecal valve. The colonoscopy was performed without difficulty. The patient tolerated the procedure well. The quality of the bowel preparation was good. The ileocecal valve and the appendiceal orifice were photographed. Moderate Sedation: Moderate (conscious) sedation was personally administered by the endoscopist. The following parameters were monitored: oxygen saturation, heart rate, blood pressure, and response to care. Total physician intraservice time was 15 minutes. Scope In: 6:31:38 AM Scope Withdrawal Time 0 hours 10 minutes 24 seconds Scope Out: 6:51:33 AM Total Procedure Duration Time 0 hours 19 minutes 55 seconds Findings: The digital rectal exam findings include non-thrombosed internal hemorrhoids and internal hemorrhoids that prolapse with straining, but spontaneously regress to the resting position (Grade II). The colon (entire examined portion) was moderately tortuous. Advancing the scope required using manual pressure. The exam was otherwise without abnormality. Impression: - Non-thrombosed internal hemorrhoids and internal hemorrhoids that prolapse with straining, but spontaneously regress to the resting position (Grade II) found on digital rectal exam. - Tortuous colon. - The examination was otherwise normal. - No specimens collected. Recommendation: - Discharge patient to home. - Resume previous diet. - Continue present medications. - Repeat colonoscopy in 5 years for surveillance. Procedure Code(s): --- Professional --- 09725, Colonoscopy, flexible; diagnostic, including collection of specimen(s) by brushing or washing, when performed (separate procedure) 05481, 59, Moderate sedation services provided by the same physician or other qualified health home health aide caregiver performing the diagnostic or therapeutic service that the sedation supports, requiring the presence of an independent trained observer to assist in the monitoring of the patient's level of consciousness and physiological status; initial 15 minutes of intraservice time, patient age 5 years or older Diagnosis Code(s): --- Professional --- Z86.010, Personal history of colonic polyps K64.1, Second degree hemorrhoids Q43.8, Other specified congenital malformations of intestine CPT copyright 2017 [employer]. All rights reserved. The codes documented in this report are preliminary and upon automat watcher review may be revised to meet current compliance requirements. Jared Mayer MD 09/22/2021 6:56:53 AM This report has been signed electronically. Number of Addenda: 0 Note Initiated On: 09/22/2021 6:17 AM
--- NOTE | 2021-09-22 06:57 | OP.CCLET_ITS ---
09/22/2021 Jacquelyn Giron Re : Colonoscopy procedure for Breanna Figueroa Dear Mack This procedure was performed on Wednesday, September 22, 2021. My impressions and recommendations are as follows: Impressions : - Non-thrombosed internal hemorrhoids and internal hemorrhoids that prolapse with straining, but spontaneously regress to the resting position (Grade II) found on digital rectal exam. - Tortuous colon. - The examination was otherwise normal. - No specimens collected. Recommendations : - Discharge patient to home. - Resume previous diet. - Continue present medications. - Repeat colonoscopy in 5 years for surveillance. My findings are described in the full procedure note, which is enclosed. If I can be of further assistance, please feel free to contact me at Doctor phone number(s): Work: . Sincerely, Jared Mayer MD 09/22/2021 6:56:53 AM This report has been signed electronically.
--- NOTE | 2021-09-22 07:35 | SUR.PHASEII ---
DR LUONG WENT INTO PATIENT'S ROOM AND PATIENT WAS C/O NAUSEA. SHE LOOKED PALE AND FLUSH. DR. LUONG SAID TO GET ON THE MONITOR. THIS NURSE TOOK THE MONITOR TO ROOM AND BEGAN HOOKING HER UP BUT THEN TOOK HER BACK TO PACU. DR. LUONG SAID INSERT NEW IV, GIVE FLUIDS AND ZOFRAN ALONG WITH AN EKG. IV STARTED FLUIDS OPENED UP AND EKG CALLED. EKG SHOWED SINUS TOBIAS, OTHER RICCI NORMAL. AT 756A PATIENT IS FEELING BETTER, COLOR IS RETURNING TO HER FACE AND SHE IS TAKING ICE CHIPS.
--- NOTE | 2021-09-22 07:35 | SUR.PHASEII ---
pt back to pacu- became nauseated in phase two- iv restarted and zofran given dr jones at bedside called for ekg and ekg ordered vss
--- NOTE | 2021-09-22 07:36 | EKG12_ITS ---
Test Reason : POSTOP Blood Pressure : / mmHG Vent. Rate : 053 BPM Atrial Rate : 053 BPM P-R Int : 166 ms QRS Dur : 092 ms QT Int : 466 ms P-R-T Axes : 046 013 048 degrees QTc Int : 437 ms Sinus bradycardia Otherwise normal ECG When compared with ECG of 09-FEB-2014 11:32, Vent. rate has decreased BY 29 BPM Confirmed by MARY OLIVEROS, TAWNY ([id number]), book editor ERWIN HUGHES ([id number]) on 09/26/2021 7:32:39 AM Referred By: Jacquelyn Giron Confirmed By:TAWNY HERNANDEZ MD
[2021-09-22] MEDS: Ondansetron 4 MG/2 ML Vial IV (07:51)
--- NOTE | 2021-09-22 08:50 | SUR.PHASEII ---
PATIENT FEELS BETTER, VITALS ARE STABLE. STATES JUST A LITTLE SHAKY THIS NURSE TOOK HER BACK OUT TO HER ROOM. AT BEDSIDE. HANDED OFF TO DISCHARGE NURSE.
== END 2021-09-22 09:35 | disposition home or self-care (01) ==
LOC: EN 05:26 → AC 05:26
PROVIDERS: PCP Internal Medicine; Referring Provider Internal Medicine; Visit Provider Surgery
PROC: 0DJD8ZZ Inspection of Lower Intestinal Tract, Via Natural or Artificial Opening Endoscopic (ICD-10-PCS; CPT 45378; principal; 2021-09-22 06:25)
DX: Z12.11 Encounter for screening for malignant neoplasm of colon (principal); K64.8 Other hemorrhoids; I10 Essential (primary) hypertension; E78.00 Pure hypercholesterolemia, unspecified; Z86.010 Personal history of colon polyps; E78.5 Hyperlipidemia, unspecified; K64.1 Second degree hemorrhoids; Q43.8 Other specified congenital malformations of intestine
CPT/HCPCS: 45378; 93005; 99152; 99153; J7120; J2405

== ENCOUNTER → 2022-02-16 | Outpatient (CLI) | payer MEDICARE, OTHER, SELFPAY ==
--- NOTE | 2022-02-16 10:11 | BI_ITS ---
MAMMOGRAPHY - BILATERAL SCREENING REASON FOR EXAM: Female, 71 years old. Routine annual screening examination. PERTINENT HISTORY: Aunt with breast cancer. Remote left stereotactic breast biopsy. TECHNIQUE: Digital bilateral breast shelbi (3D mammographic acquisition) in the CC and MLO projections. 2-D mediolateral oblique (MLO) and craniocaudad (CC) views of both breasts were obtained. CAD: Full Field Digital Mammography with Computer Added Detection was performed. COMPARISON: Comparison is made with prior study dated 02/06/2021 02/05/2020. FINDINGS: Breast Composition: There are scattered areas of fibroglandular density. There are no dominant masses or suspicious calcifications. Stable small benign-appearing bilateral axillary lymph nodes. A tissue clip marker is once again seen in the slightly upper central portion of the left breast. Stable small benign-appearing bilateral axillary lymph nodes. No other significant abnormalities are identified. There has been no significant change since the prior study. BI/SCREENING MAMM (CAD), BILAT IMPRESSION: Stable bilateral screening mammogram. Yearly follow-up mammogram recommended. (A) ASSESSMENT CATEGORY: BIRADS Category 2: Benign. A letter regarding these results will be sent to the patient by the facility within 30 days. Approximately 10% of breast cancers are not detected by mammography. A normal mammogram should not delay biopsy of a clinically suspicious abnormality. [id number] Electronically Signed: Nghia Bergman MD at 11:01 EDT ,
== END | disposition home or self-care (01) ==
LOC: OPBI 10:10
PROVIDERS: PCP Internal Medicine; Visit Provider Internal Medicine
DX: Z12.31 Encounter for screening mammogram for malignant neoplasm of breast (principal); Z80.3 Family history of malignant neoplasm of breast
CPT/HCPCS: 77067

== ENCOUNTER → 2023-07-31 | Outpatient (CLI) | payer MEDICARE, OTHER, SELFPAY ==
--- NOTE | 2023-07-31 09:52 | BI_ITS ---
MAMMOGRAPHY - BILATERAL SCREENING REASON FOR EXAM: Female, 73 years old. Routine annual screening examination. PERTINENT HISTORY: Aunts with breast cancer. Remote left stereotactic breast biopsy. TECHNIQUE: Digital bilateral breast tristan (3D mammographic acquisition) in the CC and MLO projections. 2-D mediolateral oblique (MLO) and craniocaudad (CC) views of both breasts were obtained. CAD: Full Field Digital Mammography with Computer Added Detection was performed. COMPARISON: Comparison is made with prior study February 16, 2022 and February 06, 2021 FINDINGS: Breast Composition: The breasts are heterogeneously dense, which may obscure small masses. There are no dominant masses or suspicious calcifications. A tissue clip marker is once again seen in the upper central portion of the left breast. Stable small benign-appearing bilateral axillary lymph nodes. No other significant abnormalities are identified. There has been no significant change since the prior study. BI/SCRN MAMM (CAD)W/TRISTAN BILAT IMPRESSION: Stable bilateral screening mammogram. Yearly follow-up mammogram recommended. (A) ASSESSMENT CATEGORY: BIRADS Category 2: Benign. A letter regarding these results will be sent to the patient by the facility within 30 days. Approximately 10% of breast cancers are not detected by mammography. A normal mammogram should not delay biopsy of a clinically suspicious abnormality. [id number] Electronically Signed: Nghia Bergman MD at 11:07 EDT ,
== END | disposition home or self-care (01) ==
LOC: OPBD 09:50
PROVIDERS: PCP Internal Medicine; Referring Provider Internal Medicine; Visit Provider Internal Medicine
DX: Z12.31 Encounter for screening mammogram for malignant neoplasm of breast (principal); Z80.3 Family history of malignant neoplasm of breast
CPT/HCPCS: 77063; 77067

== ENCOUNTER → 2023-08-15 | Outpatient (CLI) | payer MEDICARE, OTHER, SELFPAY ==
--- NOTE | 2023-08-15 15:06 | BD_ITS ---
STUDY: DUAL ENERGY X-RAY ABSORPTIOMETRY / DXA REASON FOR EXAM: Female, 73 years old. [id number] TECHNIQUE: Bone Mineral Density (BMD) measurements of lumbar spine and bilateral hips were obtained. COMPARISON: Comparison is made with prior study dated July 05, 2021. FINDINGS: Lumbar Spine (L1-L4): g/cm2 (0.990) / T-score (-0.6) / Z-score (1.9) Findings are suggestive of normal bone density with a low fracture risk. Left Femur Total: g/cm2 (0.962) / T-score (0.2) / Z-score (2.0) Left Femoral Neck: g/cm2 (0.730) / T-score (-1.1) / Z-score (1.0) Right Femur Total: g/cm2 (0.905) / T-score (-0.3) / Z-score (1.5) Right Femoral Neck: g/cm2 (0.719) / T-score (-1.2) / Z-score (0.9) The T-Scores on the most recent prior examination were: Lumbar Spine (L1-L4): There has been worsening of bone density since the previous examination. Left Femur Total: which represents an improvement of 2.7%. Right Femur Total: which represents a worsening of 2.2%. BD/Dexa Bone Density Study IMPRESSION: The patient is considered osteopenic as outlined below according to World [place] Organization (WHO) criteria with a low fracture risk. There has been worsening of bone density since the previous examination. Reference Information: The T-score is the number of standard deviations above or below the standard which is normal for young adults at their peak bone mineral density. The World Health Organization (WHO) interprets the T-scores as follows: Above -1 Normal bone density Between -1 and -2.5 Osteopenia Equal to / or below -2.5 Osteoporosis As a practical clinical guideline, osteopenia may be graded as follows: Mild -1 through -1.5 Moderate -1.6 through -2.0 Severe -2.1 through -2.4 The Z-score is the number of standard deviations above or below age-matched controls. A Z-score of less than -1.5 would be considered abnormal. References: 1. NIH Osteoporosis and Related Bone Diseases www osteo.org 2. International Society for Clinical Densitometry www iscd.org 3. National Osteoporosis Foundation www nof.org Electronically Signed: Nghia Bergman MD at 14:54 EDT ,
== END | disposition home or self-care (01) ==
LOC: OPBD 15:05
PROVIDERS: PCP Internal Medicine; Visit Provider Internal Medicine
DX: Z78.0 Asymptomatic menopausal state (principal)
CPT/HCPCS: 77080

== ENCOUNTER → 2023-12-26 | Outpatient (CLI) | payer MEDICARE, OTHER, SELFPAY ==
--- NOTE | 2023-12-26 07:55 | ECHOD_ITS ---
Reason For Study: PVC Procedure This was a 2D Doppler, Color Flow transthoracic echocardiogram. Exam performed in department. Left Ventricle Normal LV size. Mild concentric left ventricular hypertrophy. The left ventricular ejection fraction is 70 %. Normal diastology for age. Right Ventricle Normal right ventricle. Atria The left and right atria are normal. Mitral Valve Trivial mitral valve insufficiency. Tricuspid Valve Trivial tricuspid valve insufficiency. Unable to estimate RV systolic pressure due to insufficient tricuspid regurgitant envelope. Aortic Valve Trisinus/trileaflet aortic valve. Pulmonic Valve The pulmonic valve is not well visualized. Great Vessels Normal sized aortic root. Pericardium/Pleural No pericardial effusion. MMode/2D Measurements & Calculations LVIDd: 4.4 cm IVSd: 1.3 cm LVOT diam: 2.0 cm LVIDs: 2.9 cm LVPWd: 1.0 cm LVOT area: 3.0 cm2 RVDd: 3.4 cm FS: 34.6 % Ao root diam: 3.2 cm LAV(MOD-bp): 43.0 ml LVAd ap4: 22.1 cm2 LAV(MOD-bp) Indexed: 21.8 ml/m2 LVLd ap4: 7.3 cm LAV(MOD-sp2): 43.3 ml EDV(MOD-sp4): 55.2 ml LAV(MOD-sp4): 38.9 ml EDV(sp4-el): 56.7 ml LVAs ap4: 11.4 cm2 LVLs ap4: 6.2 cm ESV(MOD-sp4): 19.4 ml ESV(sp4-el): 17.9 ml EF(MOD-sp4): 64.9 % EF(sp4-el): 68.5 % SV(MOD-sp4): 35.8 ml SV(sp4-el): 38.9 ml LA A4 area: 14.4 cm2 LA dimension(2D): 3.3 cm RA A4 area: 12.5 cm2 TAPSE: 2.0 cm Time Measurements MV dec time: 0.15 sec Doppler Measurements & Calculations MV E max javon: 63.9 cm/sec Lat Peak E' Javon: 4.4 cm/sec Med Peak E' Javon: 5.0 cm/sec MV A max javon: 88.2 cm/sec E/E' lat: 14.4 E/E' med: 12.7 MV E/A: 0.72 MV V2 max: 88.3 cm/sec Ao V2 max: 117.2 cm/sec MV max P.1 mmHg MV dec slope: 482.9 cm/sec2 Ao max P.5 mmHg MV V2 mean: 49.8 cm/sec Ao V2 mean: 87.5 cm/sec MV mean P.2 mmHg Ao mean P.4 mmHg MV V2 VTI: 25.2 cm Ao V2 VTI: 27.1 cm AV (velocity ratio): 0.83 MVA(VTI): 2.7 cm2 JU(I,D): 2.5 cm2 JU(V,D): 2.6 cm2 LV V1 max: 101.6 cm/sec SV(LVOT): 68.4 ml PA V2 max: 77.7 cm/sec LV V1 max P.1 mmHg PA V2 mean: 59.0 cm/sec LV V1 mean P.2 mmHg LV V1 mean: 69.6 cm/sec LV V1 VTI: 22.5 cm ECHO/Echo Complete Interpretation Summary Mild concentric left ventricular hypertrophy. The left ventricular ejection fraction is 70 %. Ordering Physician: Jacquelyn Giron Referring Physician: Jacquelyn Giron Performed By: Amie Mckinney RCS
== END | disposition home or self-care (01) ==
PROVIDERS: PCP Internal Medicine; Referring Provider Internal Medicine; Visit Provider Internal Medicine
DX: I49.3 Ventricular premature depolarization (principal)
CPT/HCPCS: 93225; 93226; 93306

== ENCOUNTER → 2024-03-09 | Outpatient (CLI) | payer MEDICARE, OTHER, SELFPAY ==
--- NOTE | 2024-03-09 09:47 | STE_ITS ---
Reason For Study: PVC's Stress Results Protocol: Lon Protocol Maximum Predicted HR: 145 bpm Target HR: 123 bpm % Maximum Predicted HR: 98 % DurationHeart Rate Stage (mm:ss) (bpm) BP Comment Baseline 75 124/74No Chest Pain Lon Protocol Stage I 3:00 118 128/70No Chest Pain; Mild Dyspnea Lon Protocol Stage II 2:15 142 170/72No Chest Pain; Moderate Dyspnea Recovery 93 132/74No Chest Pain; No Dyspnea Stress Duration: 5:15 mm:ss Maximum Stress HR: 142 bpm METS: 7 Baseline Echocardiogram Findings Stress Echo Wall motion Data Resting WM Intermediate WM Stress WM ECHO/Stress Test Echo w/o Contrast Interpretation Summary Exercise stress echocardiogram. 73-year-old lady with a history of chest pain. Resting EKG demonstrates normal sinus rhythm with a rate of 82 bpm normal inter vals are noted resting blood pressure is 124/74 mmHg. The patient exercised according to regul ar Lon protocol for a total duration of 5 minutes and 15 seconds. Patient completed 2 minutes and 1 5 seconds to stage II of the Lon protocol the maximum heart rate attained was 142 bpm which was 97% of max impacted heart rate the maximum workload was 7 metabolic equivalents. At rest there were no ST or T wave changes noted suggest ischemia and at peak exercise upsloping ST changes were n oted we did not meet the criteria for ischemia no chest pain was noted moderate dyspnea was noted. T he peak blood pressure was 170/72 mmHg which was a normal blood pressure response to exercise . No significant premature ventricular complexes noted Stress echocardiogram. Resting echocardiographic images demonstrated preserved ejection fraction of 55% with no wall motion abnormalities present. At peak exercise there was thick ening of all jacques reduction of low ventricular cavity size and peaking of ejection fraction of 65 %. Conclusion: Exercise stress echocardiogram with normal resting and stress echocardiographic images at a moderate workload No ischemia noted Ordering Physician: Anastacio Lowery Referring Physician: Anastacio Lowery Performed By: Pierce Burks RCS
== END | disposition home or self-care (01) ==
LOC: CVS 09:46
PROVIDERS: PCP Internal Medicine; Referring Provider Internal Medicine Cardiovascular Disease; Visit Provider Internal Medicine Cardiovascular Disease
DX: I49.3 Ventricular premature depolarization (principal); R06.00 Dyspnea, unspecified
CPT/HCPCS: 93017; 93350

== ENCOUNTER → 2024-06-04 | Outpatient (CLI) | payer MEDICARE, OTHER, SELFPAY ==
--- NOTE | 2024-06-04 13:31 | CT_ITS ---
INDICATION: pulmonary nodule follow up EXAMINATION: CT CHEST WITHOUT CONTRAST - CT Chest W/O Contrast Injection TECHNIQUE: Helically acquired images were obtained of the chest. A radiation dose optimization technique was used for this scan. IV Contrast dosage and agent: None. COMPARISON: None. FINDINGS: LUNGS, PLEURA AND LARGE AIRWAYS: No, consolidation, or edema. Tiny calcified granuloma in left upper lobe No pleural effusion or thickening. No pneumothorax. THYROID: No thyroid lesions. HEART AND PERICARDIUM: Heart size is normal. No pericardial effusion. CORONARY ARTERIES: Mild coronary artery calcification VESSELS: Mild atherosclerotic change of the aorta without evidence for aneurysm. MEDIASTINUM AND HIRO: No mediastinal or hilar adenopathy. Esophagus is unremarkable. Large intrathoracic hiatal hernia. UPPER ABDOMEN: Large left renal cyst which will not require additional imaging. BONES: Dorsal spine demonstrates mild degenerative change No suspicious lytic or blastic abnormality. CT/Chest without Contrast IMPRESSION: Mild ASHD and tiny calcified granuloma in left upper lobe. No other focal nodules identified. Electronically Signed: Carlos Lockwood MD at 19:27 EST Reading Location ID and State: [address] [place] [address] Tel , Service support ,
== END | disposition home or self-care (01) ==
LOC: CT 13:31
PROVIDERS: PCP Internal Medicine; Referring Provider Internal Medicine; Visit Provider Internal Medicine
DX: R91.1 Solitary pulmonary nodule (principal)
CPT/HCPCS: 71250

== ENCOUNTER → 2024-09-22 | Outpatient (CLI) | payer MEDICARE, OTHER, SELFPAY ==
--- NOTE | 2024-09-22 14:42 | BI_ITS ---
EXAM: SCRN MAMM (CAD)W/TRISTAN BILAT DATE: 09/22/2024 CLINICAL HISTORY: F, Age 74 y/o , SCRN MAMM (CAD)W/TRISTAN BILAT History of remote left stereotactic breast biopsy. Aunts with breast cancer. BREAST CANCER RISK ASSESSMENT: Not assessed. TECHNIQUE: Bilateral screening digital breast tomosynthesis with 2D and 3D images. Computer aided detection. COMPARISON: Prior exam(s) dated July 31, 2023.. FINDINGS: TISSUE DENSITY: The breast tissue is heterogenously dense, which may obscure small masses. Bilateral Breast Mammographic Findings: No significant masses, calcifications or other abnormalities are identified. A tissue clip marker is once again seen in the upper central portion of the left breast. Stable small benign-appearing bilateral axillary lymph nodes. No suspicious masses, areas of developing architectural distortion, or suspicious calcifications. There has been no significant interval change. BI/SCRN MAMM (CAD)W/TRISTAN BILAT IMPRESSION: OVERALL FINAL ASSESSMENT: BIRADS 2 BENIGN FINDING RECOMMENDATION: Routine annual follow-up in 1 Year A letter with findings and recommendations will be mailed to the patient. Reading Location: [id number]
== END | disposition home or self-care (01) ==
LOC: OPBI 14:42
PROVIDERS: PCP Internal Medicine; Referring Provider Internal Medicine; Visit Provider Internal Medicine
DX: Z12.31 Encounter for screening mammogram for malignant neoplasm of breast (principal); Z80.3 Family history of malignant neoplasm of breast
CPT/HCPCS: 77063; 77067

== ENCOUNTER → 2025-03-26 | Outpatient (CLI) | payer MEDICARE, OTHER, SELFPAY ==
[2025-03-26 12:40] LABS: Hematocrit 39.6 % (37-47); Hemoglobin 13.4 g/dL (12.0-15.0); Immature Granulocytes Count 0.030 X10^3/uL (0.0-0.0); Mean Corp Hgb Conc 33.8 g/dL (32-36); Mean Corpuscular Volume 97.3 fL (81-99); Mean Platelet Vol. 13.0 fl (6.2-12.0); NRBC Flagged by Analyzer 0 % (0-5); Platelet Count 214 K/mm3 (150-450); RBC Distribution Width CV 12.4 % (11.6-14.6); RBC Distribution Width SD 44.4 fl (35.1-43.9); Red Blood Count 4.07 M/mm3 (4.2-5.4); White Blood Count 6.8 K/mm3 (4.4-11.0)
[2025-03-26 13:07] LABS: AST(SGOT) 43 U/L (<=31); Alanine Aminotransfer ALT/SGPT 44 U/L (<=34); Albumin, Serum 4.2 g/dL (3.4-4.8); Alkaline Phosphatase 83 U/L (35-104); Anion Gap 10 (5-15); BUN 22 mg/dL (4-19); BUN/Creat Ratio 20.7 RATIO (10-20); Calcium,Total 9.6 mg/dL (7.6-11.0); Carbon Dioxide 25.6 mmol/L (21.0-32.0); Chloride 104 mmol/L (98-108); Cholesterol 155 mg/dL (<=200); Globulin 2.7 g/dL (2.2-4.2); Glucose 98 mg/dL (70-99); Low Density Lipoprotein Calc. 61 mg/dL; Potassium 3.8 mmol/L (3.3-5.1); Triglycerides 61 mg/dL; Very Low Density Lipoprotein 12 mg/dL (5-40); Vitamin D,25 Hydroxy 42.9 ng/mL (30-100); cholesterol:hdl ratio screen 1.89
== END | disposition home or self-care (01) ==
LOC: MTLAB 09:34
PROVIDERS: PCP Internal Medicine; Referring Provider Internal Medicine; Visit Provider Internal Medicine
DX: I10 Essential (primary) hypertension (principal); E55.9 Vitamin D deficiency, unspecified
CPT/HCPCS: 36415; 80053; 80061; 82306; 84443; 85025

== ENCOUNTER → 2025-04-05 | Outpatient (CLI) | payer MEDICARE, OTHER, SELFPAY ==
[2025-04-05 11:27] LABS: AST(SGOT) 42 U/L (<=31); Alanine Aminotransfer ALT/SGPT 46 U/L (<=34); Albumin, Serum 4.2 g/dL (3.4-4.8); Alkaline Phosphatase 87 U/L (35-104); Bilirubin, Direct 0.23 mg/dL (0.00-0.30); Globulin 2.6 g/dL (2.2-4.2)
== END | disposition home or self-care (01) ==
LOC: CIMLAB 09:24
PROVIDERS: PCP Internal Medicine; Referring Provider Internal Medicine; Visit Provider Internal Medicine
DX: R79.89 Other specified abnormal findings of blood chemistry (principal)
CPT/HCPCS: 36415; 80076

== ENCOUNTER → 2025-05-11 | Outpatient (CLI) | payer MEDICARE, OTHER, SELFPAY ==
[2025-05-11 10:35] LABS: Hematocrit 37.9 % (37-47); Hemoglobin 12.3 g/dL (12.0-15.0); Immature Granulocytes Count 0.060 X10^3/uL (0.0-0.0); Mean Corp Hgb Conc 32.5 g/dL (32-36); Mean Corpuscular Volume 100.3 fL (81-99); Mean Platelet Vol. 14.2 fl (6.2-12.0); NRBC Flagged by Analyzer 0 % (0-5); Platelet Count 176 K/mm3 (150-450); RBC Distribution Width CV 12.5 % (11.6-14.6); RBC Distribution Width SD 46.4 fl (35.1-43.9); Red Blood Count 3.78 M/mm3 (4.2-5.4); White Blood Count 5.5 K/mm3 (4.4-11.0)
[2025-05-11 10:57] LABS: AST(SGOT) 31 U/L (<=31); Alanine Aminotransfer ALT/SGPT 25 U/L (<=34); Albumin, Serum 4.0 g/dL (3.4-4.8); Alkaline Phosphatase 58 U/L (35-104); Anion Gap 9 (7-18); BUN 15 mg/dL (4-19); BUN/Creat Ratio 14.7 RATIO (10-20); Calcium,Total 9.0 mg/dL (7.6-11.0); Carbon Dioxide 26.0 mmol/L (20.0-29.0); Chloride 106 mmol/L (96-106); Globulin 1.9 g/dL (2.2-4.2); Glucose 95 mg/dL (70-99); Potassium 4.0 mmol/L (3.5-5.1)
[2025-05-11 11:17] LABS: Amylase 74 U/L (28-100); Lipase 40 U/L (13-75)
== END | disposition home or self-care (01) ==
LOC: LABSPEC 08:05
PROVIDERS: PCP Internal Medicine; Referring Provider Internal Medicine; Visit Provider Internal Medicine
DX: R42 Dizziness and giddiness (principal); R11.0 Nausea
CPT/HCPCS: 80053; 82150; 83690; 85025